=== PATIENT | female | born 1950 | race Caucasian/White ===

== ENCOUNTER 2017-11-22 17:07 | Emergency (ER) | payer MEDICARE ==
[~2017-11-22] VITALS: Ht 160 cm; Wt 59.0 kg
[2017-11-22 17:07] VITALS: BP 152/87
== END 2017-11-22 18:55 | disposition home or self-care (01) ==
LOC: ER 17:09
DX: S69.82XA Other specified injuries of left wrist, hand and finger(s), initial encounter (principal); G40.909 Epilepsy, unspecified, not intractable, without status epilepticus; W18.39XA Other fall on same level, initial encounter; Y93.89 Activity, other specified; Y92.89 Other specified places as the place of occurrence of the external cause; Y99.8 Other external cause status
CPT/HCPCS: 29130; 73140; 99284; A4606; Z7610